=== PATIENT | female | born 1945 | race Caucasian/White ===

== ENCOUNTER 2023-12-13 13:33 | Emergency (ER) | payer BC, MEDICARE ==
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
[2023-12-13] MEDS: DIPH,PERTUS(ACELL)TETVAC-LF 0.5 ML VIAL IM ONE (14:07)
[2023-12-13 14:16] VITALS: BP 172/95; PULSE 72; RESP 20; TEMP 98.3
== END 2023-12-13 14:26 | disposition home or self-care (01) ==
LOC: EC 13:33
DX: S63.501A Unspecified sprain of right wrist, initial encounter (principal); V89.2XXA Person injured in unspecified motor-vehicle accident, traffic, initial encounter; Y92.411 Interstate highway as the place of occurrence of the external cause; Z23 Encounter for immunization
CPT/HCPCS: 90471; 90715; 99284